=== PATIENT | female | born 1960 | race American Indian/Alaskan Native ===

== ENCOUNTER 2021-11-28 19:50 | Emergency (ER) | payer SELFPAY ==
[2021-11-28 19:59] VITALS: BP 129/81
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
== END 2021-11-28 21:19 | disposition home or self-care (01) ==
LOC: ED 19:50
DX: Z04.1 Encounter for examination and observation following transport accident (principal); V49.9XXA Car occupant (driver) (passenger) injured in unspecified traffic accident, initial encounter; Y93.89 Activity, other specified; Y92.89 Other specified places as the place of occurrence of the external cause; Y99.8 Other external cause status
CPT/HCPCS: 99282